=== PATIENT | female | born 1995 | race Caucasian/White ===

== ENCOUNTER 2021-11-30 23:55 | Emergency (ER) | payer OTHER ==
[~2021-11-30] VITALS: Ht 170.2 cm; Wt 90.7 kg
[2021-12-01 00:10] VITALS: BP 117/74
--- NOTE | 2021-12-01 00:13 | NUR ---
to bed ambulatory
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
--- NOTE | 2021-12-01 00:34 | NUR ---
RAD AT BEDSIDE.
[2021-12-01] MEDS ORDERED: KETOROLAC 30 MG/ML VIAL IM ONE (01:15)
[2021-12-01] MEDS ORDERED: NAPR-54 PO (01:52)
[2021-12-01 02:10] VITALS: BP 117/74
== END 2021-12-01 02:10 | disposition home or self-care (01) ==
LOC: MED 23:55
DX: S50.11XA Contusion of right forearm, initial encounter (principal); S90.01XA Contusion of right ankle, initial encounter; F12.90 Cannabis use, unspecified, uncomplicated; Z79.899 Other long term (current) drug therapy; Z98.890 Other specified postprocedural states; V89.2XXA Person injured in unspecified motor-vehicle accident, traffic, initial encounter; Y93.89 Activity, other specified; Y92.89 Other specified places as the place of occurrence of the external cause; Y99.8 Other external cause status
CPT/HCPCS: 73090; 73610; 81025; 96372; 99283; J1885; Q0092